=== PATIENT | male | born 1980 | race Caucasian/White ===

== ENCOUNTER 2024-09-19 20:00 | Outpatient (CLI) | payer OTHER, SELFPAY | END 2024-09-19 20:01 | disposition home or self-care (01) | LOC: SLEEP 23:33 | PROVIDERS: Visit Provider Family Medicine | DX: G47.33 Obstructive sleep apnea (adult) (pediatric) (principal); G47.36 Sleep related hypoventilation in conditions classified elsewhere | CPT/HCPCS: 95810 ==